=== PATIENT | male | born 1990 | race Caucasian/White ===

== ENCOUNTER 2020-07-17 18:53 | Inpatient (IN) | payer MEDICAID ==
[~2020-07-17] VITALS: Ht 182.9 cm; Wt 323.1 kg
--- NOTE | 2020-07-17 19:03 | NUR ---
Pt presents to ed states "webmd told me i am retaining fluids." States increased "size" to outer chests and "when i push down, the fat stays compressed." Pt able to ambulate w/ steady gait, but gets out of breath shortly after. 2+ pitting edema noted on upper and lower extremities and pt is morbidly obese. States has chronic sob, "because i just feel like i have too much on my chest." Monitoring applied. Pt RA sat 85% and put on 3.5 L nc and sat up to 91%. Pt tachycardic at time and bp elevated.
--- NOTE | 2020-07-17 19:43 | NUR ---
BARIATRIC BED REQUESTED FROM HOUSEKEEPING.
--- NOTE | 2020-07-17 20:13 | NUR ---
Pt moved to bariatric bed. Pt able to shuffle to edge of bed. Pt reporting bariatric bed much more comfortable.
[2020-07-17] MEDS ORDERED: FUROSEMIDE 40 MG/4 ML IV ONE (21:00)
[2020-07-17 21:56] LABS: MEAN CORPUSCULAR HEMOGLOBIN 24.1 pg (27.5-34.5); MEAN CORPUSCULAR HGB CONC 30.5 g/dL (33.2-36.2); PLATELET COUNT 252 x10^3/uL (130-400); RED BLOOD COUNT 5.37 x10^6/uL (4.38-5.82); RED CELL DISTRIBUTION WIDTH 23.6 % (9.4-14.8)
[2020-07-17 22:00] LABS: ALBUMIN 2.5 g/dL (3.4-5.0); ANION GAP 4 mmol/L (5-15); CALCIUM 7.7 mg/dL (8.5-10.1); CHLORIDE 104 mmol/L (98-107)
[2020-07-17 22:05] LABS: ALANINE AMINOTRANSFERASE 41 U/L (12-78); ALKALINE PHOSPHATASE 129 U/L (45-117); BILIRUBIN,TOTAL 1.7 mg/dL (0.2-1.0); CREATININE 1.32 mg/dL (0.7-1.3); TOTAL PROTEIN 6.9 g/dL (6.4-8.2); TROPONIN I < 0.015 ng/mL (0.000-0.045)
[2020-07-17 22:21] LABS: BASOPHILS # (AUTO) 0.03 x10^3/uL (0-0.1); BASOPHILS % (AUTO) 0 % (0-1); EOSINOPHILS # (AUTO) 0.18 x10^3/uL (0-0.4); EOSINOPHILS % (AUTO) 2 % (1-7); LYMPHOCYTES # (AUTO) 2.38 x10^3/uL (1-3.4); LYMPHOCYTES % (AUTO) 20 % (22-44); MD MORPH REVIEW ONLY; MONOCYTES # (AUTO) 0.64 x10^3/uL (0.2-0.8); MONOCYTES % (AUTO) 5 % (2-9); NEUTROPHILS # (AUTO) 8.63 x10^3/uL (1.8-6.8); NEUTROPHILS % (AUTO) 73 % (42-75)
[2020-07-17 22:22] LABS: <PLATELET ESTIMATE> ADEQUATE; <PLT MORPHOLOGY> NORMAL PLT MORPH; ANISOCYTOSIS 1+; HYPOCHROMIA 1+; MICROCYTOSIS 1+; POLYCHROMASIA 1+
[2020-07-17] MEDS ORDERED: FUROSEMIDE 40 MG/4 ML ONE (22:28)
--- NOTE | 2020-07-17 23:54 | NUR ---
Pt not ventilating as well on optiflow, pt has put out 2800mls of urine. Pt reports he is breathing fine but pts breathing rate is otherwise, pt had o2 increased and respiratory paged for bedside eval.
[2020-07-18] MEDS ORDERED: ACETAMINOPHEN 325 MG TABLET PO PRN
[2020-07-18] MEDS ORDERED: DOCUSATE 100 MG CAPSULE PO PRN
[2020-07-18] MEDS ORDERED: NYSTATIN TOPICAL POWDER 15GM TP SCH
[2020-07-18] MEDS ORDERED: hydrALAzine 20 MG/ML, 1ML IVPush PRN
[2020-07-18] MEDS ORDERED: MELATONIN 5 MG TABLET PO PRN
--- NOTE | 2020-07-18 00:02 | NUR ---
Report received from FERN Voss. This RN to assume care.
--- NOTE | 2020-07-18 00:06 | NUR ---
Report to Lulú SHIRLEY
--- NOTE | 2020-07-18 00:28 | NUR ---
Placed interDry Antimicrobial Silver cloth under right and left pectoral folds, as well as abdominal folds
--- NOTE | 2020-07-18 01:00 | NUR ---
Report given to FERN Yoon. Patient transferred to room 515.
[2020-07-18 01:11] VITALS: BP 136/81
[2020-07-18 02:39] VITALS: BP 135/80
[2020-07-18] MEDS: HEPARIN 5,000 UNITS/ML, 1ML SQ SCH ×3 (03:04→16:30)
[2020-07-18] MEDS: NYSTATIN TOPICAL POWDER 15GM TP SCH ×4 (07:09→20:38)
[2020-07-18 07:29] LABS: MEAN CORPUSCULAR HEMOGLOBIN 23.9 pg (27.5-34.5); MEAN PLATELET VOLUME 7.7 fL (7.4-10.4); PLATELET COUNT 273 x10^3/uL (130-400); RED CELL DISTRIBUTION WIDTH 23.6 % (9.4-14.8)
[2020-07-18 07:30] LABS: ANION GAP 5 mmol/L (5-15); CALCIUM 7.9 mg/dL (8.5-10.1); CHLORIDE 104 mmol/L (98-107); CREATININE 1.21 mg/dL (0.7-1.3)
[2020-07-18 07:35] LABS: CHOL/HDL RATIO 4.8; LDL/HDL RATIO 2.9 (0.5-3.0)
[2020-07-18 07:45] LABS: MEAN CORPUSCULAR HGB CONC 29.9 g/dL (33.2-36.2)
[2020-07-18 07:46] LABS: BASOPHILS # (AUTO) 0.02 x10^3/uL (0-0.1); BASOPHILS % (AUTO) 0 % (0-1); EOSINOPHILS % (AUTO) 1 % (1-7); LYMPHOCYTES # (AUTO) 2.15 x10^3/uL (1-3.4); LYMPHOCYTES % (AUTO) 15 % (22-44); MD SCAN; MONOCYTES # (AUTO) 0.61 x10^3/uL (0.2-0.8); MONOCYTES % (AUTO) 4 % (2-9); NEUTROPHILS # (AUTO) 11.59 x10^3/uL (1.8-6.8); NEUTROPHILS % (AUTO) 80 % (42-75)
[2020-07-18] MEDS: FUROSEMIDE 40 MG/4 ML IV SCH ×2 (08:17→16:30)
[2020-07-18] MEDS: CIPROFLOXACIN OPHTH SOLN 0.3%, 5ML EACHEYE SCH (20:38)
[2020-07-19] MEDS: HEPARIN 5,000 UNITS/ML, 1ML SQ SCH ×3 (00:21→17:25)
[2020-07-19] MEDS: CIPROFLOXACIN OPHTH SOLN 0.3%, 5ML EACHEYE SCH ×4 (02:24→20:22)
[2020-07-19] MEDS: NYSTATIN TOPICAL POWDER 15GM TP SCH ×3 (05:44→20:22)
[2020-07-19 06:28] LABS: MEAN CORPUSCULAR HEMOGLOBIN 24.3 pg (27.5-34.5); MEAN CORPUSCULAR HGB CONC 30.5 g/dL (33.2-36.2); MEAN PLATELET VOLUME 8.1 fL (7.4-10.4); PLATELET COUNT 251 x10^3/uL (130-400); RED BLOOD COUNT 5.28 x10^6/uL (4.38-5.82); RED CELL DISTRIBUTION WIDTH 23.5 % (9.4-14.8)
[2020-07-19 06:31] LABS: % IRON SATURATION 11 % (20-55); ALANINE AMINOTRANSFERASE 33 U/L (12-78); ALBUMIN 2.5 g/dL (3.4-5.0); ANION GAP 5 mmol/L (5-15); CALCIUM 8.4 mg/dL (8.5-10.1); CHLORIDE 105 mmol/L (98-107); CREATININE 1.15 mg/dL (0.7-1.3); IRON LEVEL 46 mcg/dL (65-175); TOTAL IRON BINDING CAPACITY 427 mcg/dL (250-450)
[2020-07-19 06:35] LABS: ALKALINE PHOSPHATASE 122 U/L (45-117); BILIRUBIN,TOTAL 2.2 mg/dL (0.2-1.0); TOTAL PROTEIN 7.2 g/dL (6.4-8.2)
[2020-07-19 07:04] LABS: BASOPHILS # (AUTO) 0.03 x10^3/uL (0-0.1); BASOPHILS % (AUTO) 0 % (0-1); EOSINOPHILS # (AUTO) 0.16 x10^3/uL (0-0.4); EOSINOPHILS % (AUTO) 1 % (1-7); LYMPHOCYTES # (AUTO) 2.54 x10^3/uL (1-3.4); LYMPHOCYTES % (AUTO) 21 % (22-44); MD SCAN; MONOCYTES # (AUTO) 0.69 x10^3/uL (0.2-0.8); MONOCYTES % (AUTO) 6 % (2-9); NEUTROPHILS # (AUTO) 8.75 x10^3/uL (1.8-6.8); NEUTROPHILS % (AUTO) 72 % (42-75)
[2020-07-19] MEDS: FUROSEMIDE 40 MG/4 ML IV SCH ×2 (09:33→17:25)
[2020-07-19] MEDS: IRON SUCROSE COMPLEX 100MG/5ML IV SCH (11:50)
[2020-07-20] MEDS: HEPARIN 5,000 UNITS/ML, 1ML SQ SCH ×3 (00:46→17:05)
[2020-07-20 04:37] LABS: ANION GAP 4 mmol/L (5-15); CALCIUM 8.2 mg/dL (8.5-10.1); CHLORIDE 104 mmol/L (98-107)
[2020-07-20] MEDS: NYSTATIN TOPICAL POWDER 15GM TP SCH ×4 (05:36→20:56)
[2020-07-20] MEDS: FUROSEMIDE 40 MG/4 ML IV SCH ×2 (07:54→17:05)
[2020-07-20] MEDS ORDERED: PROPOFOL 10 MG/ML, 100ML IV ONE (08:00)
[2020-07-20] MEDS: IRON SUCROSE COMPLEX 100MG/5ML IV SCH (09:08)
[2020-07-21] MEDS: HEPARIN 5,000 UNITS/ML, 1ML SQ SCH ×3 (00:19→16:38)
[2020-07-21 04:00] VITALS: BP 136/82
[2020-07-21 04:42] LABS: ANION GAP 2 mmol/L (5-15); CHLORIDE 103 mmol/L (98-107)
[2020-07-21 04:44] LABS: CREATININE 0.91 mg/dL (0.7-1.3)
[2020-07-21 04:45] LABS: MEAN CORPUSCULAR HEMOGLOBIN 24.3 pg (27.5-34.5); MEAN CORPUSCULAR HGB CONC 30.1 g/dL (33.2-36.2); MEAN PLATELET VOLUME 7.3 fL (7.4-10.4); PLATELET COUNT 248 x10^3/uL (130-400); RED CELL DISTRIBUTION WIDTH 23.4 % (9.4-14.8)
[2020-07-21 05:47] LABS: BASOPHILS # (AUTO) 0.02 x10^3/uL (0-0.1); BASOPHILS % (AUTO) 0 % (0-1); EOSINOPHILS # (AUTO) 0.17 x10^3/uL (0-0.4); EOSINOPHILS % (AUTO) 2 % (1-7); LYMPHOCYTES # (AUTO) 1.97 x10^3/uL (1-3.4); LYMPHOCYTES % (AUTO) 21 % (22-44); MD SCAN; MONOCYTES # (AUTO) 0.56 x10^3/uL (0.2-0.8); MONOCYTES % (AUTO) 6 % (2-9); NEUTROPHILS # (AUTO) 6.75 x10^3/uL (1.8-6.8); NEUTROPHILS % (AUTO) 71 % (42-75)
[2020-07-21] MEDS: NYSTATIN TOPICAL POWDER 15GM TP SCH ×4 (06:17→20:53)
[2020-07-21] MEDS: IRON SUCROSE COMPLEX 100MG/5ML IV SCH (08:46)
[2020-07-21] MEDS: FUROSEMIDE 40 MG/4 ML IV SCH ×2 (08:46→16:38)
[2020-07-21] MEDS: CIPROFLOXACIN OPHTH SOLN 0.3%, 5ML EACHEYE SCH ×2 (08:47→18:00)
[2020-07-22] MEDS: CIPROFLOXACIN OPHTH SOLN 0.3%, 5ML EACHEYE SCH ×4 (00:52→16:41)
[2020-07-22] MEDS: HEPARIN 5,000 UNITS/ML, 1ML SQ SCH ×3 (00:52→16:42)
[2020-07-22 04:00] VITALS: BP 129/81
[2020-07-22 05:26] LABS: CALCIUM 8.4 mg/dL (8.5-10.1); CREATININE 0.85 mg/dL (0.7-1.3)
[2020-07-22 05:35] LABS: ANION GAP 1 mmol/L (5-15); CHLORIDE 102 mmol/L (98-107)
[2020-07-22] MEDS: NYSTATIN TOPICAL POWDER 15GM TP SCH ×4 (06:02→20:20)
[2020-07-22] MEDS: IRON SUCROSE COMPLEX 100MG/5ML IV SCH (08:21)
[2020-07-22] MEDS: FUROSEMIDE 40 MG/4 ML IV SCH ×2 (08:21→16:41)
[2020-07-23] MEDS: CIPROFLOXACIN OPHTH SOLN 0.3%, 5ML EACHEYE SCH ×4 (00:05→17:46)
[2020-07-23] MEDS: HEPARIN 5,000 UNITS/ML, 1ML SQ SCH ×3 (01:12→17:48)
[2020-07-23 04:00] VITALS: BP 146/79
[2020-07-23 04:38] LABS: ANION GAP 3 mmol/L (5-15); CALCIUM 8.5 mg/dL (8.5-10.1); CHLORIDE 102 mmol/L (98-107)
[2020-07-23 04:42] LABS: CREATININE 0.73 mg/dL (0.7-1.3)
[2020-07-23] MEDS: NYSTATIN TOPICAL POWDER 15GM TP SCH ×4 (06:01→21:34)
[2020-07-23] MEDS: FUROSEMIDE 40 MG/4 ML IV SCH ×2 (08:38→17:47)
[2020-07-23] MEDS: IRON SUCROSE COMPLEX 100MG/5ML IV SCH (08:38)
[2020-07-24] MEDS: CIPROFLOXACIN OPHTH SOLN 0.3%, 5ML EACHEYE SCH ×5 (00:23→23:24)
[2020-07-24] MEDS: FUROSEMIDE 40 MG/4 ML IV SCH ×3 (01:28→16:48)
[2020-07-24] MEDS: HEPARIN 5,000 UNITS/ML, 1ML SQ SCH ×3 (01:28→16:48)
[2020-07-24 04:30] VITALS: BP 139/64
[2020-07-24 04:41] LABS: MEAN PLATELET VOLUME 7.5 fL (7.4-10.4); PLATELET COUNT 269 x10^3/uL (130-400); RED BLOOD COUNT 4.88 x10^6/uL (4.38-5.82); RED CELL DISTRIBUTION WIDTH 24.1 % (9.4-14.8)
[2020-07-24 04:47] LABS: ANION GAP 3 mmol/L (5-15); CALCIUM 8.5 mg/dL (8.5-10.1); CHLORIDE 100 mmol/L (98-107); CREATININE 0.72 mg/dL (0.7-1.3)
[2020-07-24 05:05] LABS: BASOPHILS # (AUTO) 0.03 x10^3/uL (0-0.1); BASOPHILS % (AUTO) 0 % (0-1); EOSINOPHILS % (AUTO) 4 % (1-7); LYMPHOCYTES # (AUTO) 1.75 x10^3/uL (1-3.4); LYMPHOCYTES % (AUTO) 23 % (22-44); MD SCAN; MONOCYTES # (AUTO) 0.44 x10^3/uL (0.2-0.8); MONOCYTES % (AUTO) 6 % (2-9); NEUTROPHILS # (AUTO) 4.97 x10^3/uL (1.8-6.8); NEUTROPHILS % (AUTO) 66 % (42-75)
[2020-07-24] MEDS: NYSTATIN TOPICAL POWDER 15GM TP SCH ×4 (05:21→20:18)
[2020-07-24] MEDS ORDERED: POTASSIUM CHLORIDE 20 MEQ TAB.ER.PRT PO ONE (06:30)
[2020-07-24] MEDS: IRON SUCROSE COMPLEX 100MG/5ML IV SCH (09:25)
[2020-07-25] MEDS: HEPARIN 5,000 UNITS/ML, 1ML SQ SCH ×3 (01:49→17:29)
[2020-07-25] MEDS: FUROSEMIDE 40 MG/4 ML IV SCH ×3 (01:49→17:29)
[2020-07-25 04:00] VITALS: BP 138/87
[2020-07-25] MEDS: CIPROFLOXACIN OPHTH SOLN 0.3%, 5ML EACHEYE SCH ×3 (06:04→17:30)
[2020-07-25] MEDS: NYSTATIN TOPICAL POWDER 15GM TP SCH ×4 (06:04→20:28)
[2020-07-26] MEDS: CIPROFLOXACIN OPHTH SOLN 0.3%, 5ML EACHEYE SCH ×2 (00:16→05:57)
[2020-07-26] MEDS: FUROSEMIDE 40 MG/4 ML IV SCH (01:46)
[2020-07-26] MEDS: HEPARIN 5,000 UNITS/ML, 1ML SQ SCH ×3 (01:46→18:00)
[2020-07-26 04:00] VITALS: BP 156/78
[2020-07-26] MEDS: NYSTATIN TOPICAL POWDER 15GM TP SCH ×4 (05:57→20:24)
[2020-07-26 08:50] LABS: ANION GAP 3 mmol/L (5-15); CALCIUM 8.6 mg/dL (8.5-10.1); CHLORIDE 100 mmol/L (98-107)
[2020-07-26 08:51] LABS: CREATININE 0.71 mg/dL (0.7-1.3)
[2020-07-26] MEDS: FUROSEMIDE 40 MG TABLET PO SCH ×2 (09:04→20:49)
[2020-07-26 09:27] LABS: BASOPHILS # (AUTO) 0.02 x10^3/uL (0-0.1); BASOPHILS % (AUTO) 0 % (0-1); EOSINOPHILS # (AUTO) 0.25 x10^3/uL (0-0.4); EOSINOPHILS % (AUTO) 3 % (1-7); LYMPHOCYTES # (AUTO) 1.69 x10^3/uL (1-3.4); LYMPHOCYTES % (AUTO) 23 % (22-44); MD SCAN; MEAN CORPUSCULAR HEMOGLOBIN 24.5 pg (27.5-34.5); MEAN CORPUSCULAR HGB CONC 30.6 g/dL (33.2-36.2); MEAN PLATELET VOLUME 7.6 fL (7.4-10.4); MONOCYTES # (AUTO) 0.46 x10^3/uL (0.2-0.8); MONOCYTES % (AUTO) 6 % (2-9); NEUTROPHILS # (AUTO) 4.99 x10^3/uL (1.8-6.8); NEUTROPHILS % (AUTO) 67 % (42-75); PLATELET COUNT 302 x10^3/uL (130-400); RED BLOOD COUNT 4.68 x10^6/uL (4.38-5.82); RED CELL DISTRIBUTION WIDTH 24.7 % (9.4-14.8)
[2020-07-26 11:51] VITALS: BP 99/54
[2020-07-26 12:33] VITALS: BP 122/75
[2020-07-26 20:26] VITALS: BP 107/57
[2020-07-27] MEDS: HEPARIN 5,000 UNITS/ML, 1ML SQ SCH ×3 (01:07→18:14)
[2020-07-27 01:53] VITALS: BP 117/66
[2020-07-27 05:01] VITALS: BP 136/66
[2020-07-27] MEDS: NYSTATIN TOPICAL POWDER 15GM TP SCH ×4 (06:46→20:51)
[2020-07-27 07:59] VITALS: BP 131/60
[2020-07-27] MEDS: FUROSEMIDE 40 MG TABLET PO SCH ×2 (08:09→20:52)
[2020-07-27 13:09] VITALS: BP 124/71
[2020-07-27 21:41] VITALS: BP 140/90
[2020-07-28 00:18] VITALS: BP 137/80
[2020-07-28] MEDS: HEPARIN 5,000 UNITS/ML, 1ML SQ SCH ×3 (01:51→17:02)
[2020-07-28] MEDS: NYSTATIN TOPICAL POWDER 15GM TP SCH ×4 (06:00→21:00)
[2020-07-28 08:00] VITALS: BP 113/68
[2020-07-28] MEDS: FUROSEMIDE 40 MG TABLET PO SCH ×2 (08:39→20:20)
[2020-07-28] MEDS ORDERED: FUROSEMIDE 40 MG TABLET PO ONE (13:00)
[2020-07-28 14:38] VITALS: BP 128/76
[2020-07-28 20:11] VITALS: BP 121/74
[2020-07-29] MEDS: HEPARIN 5,000 UNITS/ML, 1ML SQ SCH ×3 (01:19→18:34)
[2020-07-29 02:46] VITALS: BP 123/87
[2020-07-29 05:35] LABS: ANION GAP 7 mmol/L (5-15); CALCIUM 8.8 mg/dL (8.5-10.1); CHLORIDE 104 mmol/L (98-107)
[2020-07-29 05:38] LABS: CREATININE 0.81 mg/dL (0.7-1.3)
[2020-07-29] MEDS: NYSTATIN TOPICAL POWDER 15GM TP SCH ×4 (05:58→20:56)
[2020-07-29 07:56] VITALS: BP 124/66
[2020-07-29] MEDS: FUROSEMIDE 40 MG TABLET PO SCH ×2 (09:31→20:55)
[2020-07-29 13:22] VITALS: BP 118/62
[2020-07-29 15:18] VITALS: BP 138/89
--- NOTE | 2020-07-29 15:29 | NUR ---
TABITHA KLEIN I - Fall Risk Medications NOT present and receiving anticoagulants. Signed: 07/29/20 at 1530 by Steve NORMAN
[2020-07-29 18:57] VITALS: BP 137/85
[2020-07-29] MEDS: ARTIFICIAL TEARS 15 DROP/ML BOTTLE EACHEYE PRN (20:56)
[2020-07-30 00:43] VITALS: BP 158/77
[2020-07-30] MEDS: HEPARIN 5,000 UNITS/ML, 1ML SQ SCH ×3 (01:00→17:20)
[2020-07-30] MEDS: NYSTATIN TOPICAL POWDER 15GM TP SCH ×4 (06:13→21:01)
[2020-07-30 07:17] VITALS: BP 138/81
[2020-07-30] MEDS: FUROSEMIDE 40 MG TABLET PO SCH ×2 (08:52→21:00)
[2020-07-30] MEDS: ARTIFICIAL TEARS 15 DROP/ML BOTTLE EACHEYE PRN (12:41)
[2020-07-30 18:58] VITALS: BP 152/79
[2020-07-31] MEDS: HEPARIN 5,000 UNITS/ML, 1ML SQ SCH ×3 (00:30→16:59)
[2020-07-31 00:41] VITALS: BP 126/80
[2020-07-31 05:15] LABS: ANION GAP 7 mmol/L (5-15); CALCIUM 8.4 mg/dL (8.5-10.1); CHLORIDE 103 mmol/L (98-107); CREATININE 0.78 mg/dL (0.7-1.3)
[2020-07-31 05:43] LABS: MEAN CORPUSCULAR HEMOGLOBIN 24.7 pg (27.5-34.5); MEAN CORPUSCULAR HGB CONC 30.8 g/dL (33.2-36.2); MEAN PLATELET VOLUME 8.5 fL (7.4-10.4); PLATELET COUNT 313 x10^3/uL (130-400); RED BLOOD COUNT 4.65 x10^6/uL (4.38-5.82); RED CELL DISTRIBUTION WIDTH 26.5 % (9.4-14.8)
[2020-07-31 06:24] LABS: BASOPHILS # (AUTO) 0.03 x10^3/uL (0-0.1); BASOPHILS % (AUTO) 0 % (0-1); EOSINOPHILS # (AUTO) 0.24 x10^3/uL (0-0.4); EOSINOPHILS % (AUTO) 3 % (1-7); LYMPHOCYTES # (AUTO) 2.03 x10^3/uL (1-3.4); LYMPHOCYTES % (AUTO) 27 % (22-44); MD SCAN; MONOCYTES # (AUTO) 0.75 x10^3/uL (0.2-0.8); MONOCYTES % (AUTO) 10 % (2-9); NEUTROPHILS # (AUTO) 4.61 x10^3/uL (1.8-6.8); NEUTROPHILS % (AUTO) 60 % (42-75)
[2020-07-31] MEDS: NYSTATIN TOPICAL POWDER 15GM TP SCH ×4 (06:30→23:25)
[2020-07-31 08:22] VITALS: BP 136/84
[2020-07-31] MEDS: FUROSEMIDE 40 MG TABLET PO SCH ×2 (09:19→23:24)
[2020-07-31 13:52] VITALS: BP 143/80
[2020-08-01] MEDS: HEPARIN 5,000 UNITS/ML, 1ML SQ SCH ×3 (00:31→16:19)
[2020-08-01 00:33] VITALS: BP 143/88
[2020-08-01] MEDS: NYSTATIN TOPICAL POWDER 15GM TP SCH ×4 (06:29→21:04)
[2020-08-01 09:08] VITALS: BP 149/89
[2020-08-01] MEDS: FUROSEMIDE 40 MG TABLET PO SCH ×2 (09:39→21:04)
[2020-08-01 12:26] VITALS: BP 134/77
[2020-08-01] MEDS ORDERED: PEG15DRO4 EACHEYE (15:07)
[2020-08-01] MEDS ORDERED: FURO40TA6 PO (15:07)
[2020-08-01] MEDS ORDERED: DOCU100C33 PO (15:07)
[2020-08-01] MEDS ORDERED: NYST15PO2 TP (15:07)
[2020-08-01 18:39] VITALS: BP 154/80
[2020-08-02 00:11] VITALS: BP 145/84
[2020-08-02] MEDS: HEPARIN 5,000 UNITS/ML, 1ML SQ SCH ×3 (01:29→16:59)
[2020-08-02] MEDS: NYSTATIN TOPICAL POWDER 15GM TP SCH ×4 (06:04→21:23)
[2020-08-02 06:21] VITALS: BP 146/72
[2020-08-02] MEDS: FUROSEMIDE 40 MG TABLET PO SCH ×2 (09:02→21:22)
[2020-08-02 12:16] VITALS: BP 128/67
[2020-08-02 19:01] VITALS: BP 131/75
[2020-08-03 00:47] VITALS: BP 149/75
[2020-08-03] MEDS: HEPARIN 5,000 UNITS/ML, 1ML SQ SCH ×3 (00:51→17:00)
[2020-08-03] MEDS: NYSTATIN TOPICAL POWDER 15GM TP SCH ×4 (05:50→21:39)
[2020-08-03 07:37] VITALS: BP 149/23
[2020-08-03] MEDS: FUROSEMIDE 40 MG TABLET PO SCH ×2 (09:26→21:38)
[2020-08-03 12:20] VITALS: BP 140/76
[2020-08-03 20:28] VITALS: BP 145/79
[2020-08-04 01:27] VITALS: BP 157/85
[2020-08-04] MEDS: HEPARIN 5,000 UNITS/ML, 1ML SQ SCH ×3 (01:30→18:00)
[2020-08-04] MEDS: NYSTATIN TOPICAL POWDER 15GM TP SCH ×3 (06:26→16:34)
[2020-08-04 07:20] VITALS: BP 148/76
[2020-08-04] MEDS: FUROSEMIDE 40 MG TABLET PO SCH (09:55)
[2020-08-04 13:11] VITALS: BP 132/73
== END 2020-08-04 19:05 | disposition home or self-care (01) | DRG 133 ==
LOC: ED 22:48 → EDIP 23:08 → 5SO 07-18 01:01 → CCU 07-18 03:28 → 3N 07-26 11:33
PROVIDERS: ADMIT Student in an Organized Health Care Education/Training Program; ATTEND Internal Medicine
PROC: 5A09357 Assistance with Respiratory Ventilation, Less than 24 Consecutive Hours, Continuous Positive Airway Pressure (ICD-10-PCS; principal; 2020-07-18)
PROC: 5A09357 Assistance with Respiratory Ventilation, Less than 24 Consecutive Hours, Continuous Positive Airway Pressure (ICD-10-PCS; 2020-07-19)
PROC: 5A09357 Assistance with Respiratory Ventilation, Less than 24 Consecutive Hours, Continuous Positive Airway Pressure (ICD-10-PCS; 2020-07-20)
PROC: 5A09357 Assistance with Respiratory Ventilation, Less than 24 Consecutive Hours, Continuous Positive Airway Pressure (ICD-10-PCS; 2020-07-21)
PROC: 5A09357 Assistance with Respiratory Ventilation, Less than 24 Consecutive Hours, Continuous Positive Airway Pressure (ICD-10-PCS; 2020-07-22)
PROC: 5A09357 Assistance with Respiratory Ventilation, Less than 24 Consecutive Hours, Continuous Positive Airway Pressure (ICD-10-PCS; 2020-07-23)
PROC: 5A09357 Assistance with Respiratory Ventilation, Less than 24 Consecutive Hours, Continuous Positive Airway Pressure (ICD-10-PCS; 2020-07-24)
PROC: 5A09357 Assistance with Respiratory Ventilation, Less than 24 Consecutive Hours, Continuous Positive Airway Pressure (ICD-10-PCS; 2020-07-25)
PROC: 5A09357 Assistance with Respiratory Ventilation, Less than 24 Consecutive Hours, Continuous Positive Airway Pressure (ICD-10-PCS; 2020-07-26)
PROC: 5A09357 Assistance with Respiratory Ventilation, Less than 24 Consecutive Hours, Continuous Positive Airway Pressure (ICD-10-PCS; 2020-07-27)
PROC: 5A09357 Assistance with Respiratory Ventilation, Less than 24 Consecutive Hours, Continuous Positive Airway Pressure (ICD-10-PCS; 2020-07-28)
PROC: 5A09357 Assistance with Respiratory Ventilation, Less than 24 Consecutive Hours, Continuous Positive Airway Pressure (ICD-10-PCS; 2020-07-29)
PROC: 5A09357 Assistance with Respiratory Ventilation, Less than 24 Consecutive Hours, Continuous Positive Airway Pressure (ICD-10-PCS; 2020-07-30)
PROC: 5A09357 Assistance with Respiratory Ventilation, Less than 24 Consecutive Hours, Continuous Positive Airway Pressure (ICD-10-PCS; 2020-07-31)
PROC: 5A09357 Assistance with Respiratory Ventilation, Less than 24 Consecutive Hours, Continuous Positive Airway Pressure (ICD-10-PCS; 2020-08-01)
PROC: 5A09357 Assistance with Respiratory Ventilation, Less than 24 Consecutive Hours, Continuous Positive Airway Pressure (ICD-10-PCS; 2020-08-02)
PROC: 5A09357 Assistance with Respiratory Ventilation, Less than 24 Consecutive Hours, Continuous Positive Airway Pressure (ICD-10-PCS; 2020-08-03)
PROC: 5A09357 Assistance with Respiratory Ventilation, Less than 24 Consecutive Hours, Continuous Positive Airway Pressure (ICD-10-PCS; 2020-08-04)
DX: J96.21 Acute and chronic respiratory failure with hypoxia (principal); D50.9 Iron deficiency anemia, unspecified; E16.2 Hypoglycemia, unspecified; E66.2 Morbid (severe) obesity with alveolar hypoventilation; I50.33 Acute on chronic diastolic (congestive) heart failure; J96.22 Acute and chronic respiratory failure with hypercapnia; Z68.45 Body mass index [BMI] 70 or greater, adult; E87.2 Acidosis; F15.10 Other stimulant abuse, uncomplicated; H10.9 Unspecified conjunctivitis; I07.1 Rheumatic tricuspid insufficiency; L03.818 Cellulitis of other sites; N17.0 Acute kidney failure with tubular necrosis; R53.2 Functional quadriplegia; R00.0 Tachycardia, unspecified; Z74.01 Bed confinement status; Z83.3 Family history of diabetes mellitus
CPT/HCPCS: 36415; 36600; 71045; 80048; 80053; 80061; 82728; 82803; 83036; 83540; 83550; 83735; 83880; 84443; 84484; 85025; 87081; 93005; 94660; 94762; 96374; 99291; G0378; J1644; J1756; J1940; J2704; Q9957; C8924

== ENCOUNTER 2021-01-10 15:50 | Inpatient (IN) | payer MEDICAID ==
[~2021-01-10] VITALS: Ht 177.8 cm; Wt 261.8 kg
[~2021-01-10 15:50] MED LIST: DOCU100C33 PO; FURO40TA6 PO; NYST15PO2 TP; PEG15DRO4 EACHEYE
[2021-01-10] MEDS ORDERED: ADENOSINE 6 MG/2 ML ONE ×3 (16:00→16:42)
[2021-01-10] MEDS ORDERED: SODIUM CHLORIDE FLUSH 10ML SYR IVF ONE (16:30)
--- NOTE | 2021-01-10 16:47 | NUR ---
6mg of adenosine given at 1645 with MD Lin at bedside.
[2021-01-10] MEDS ORDERED: METOPROLOL 1 MG/ML, 5ML ONE (16:48)
[2021-01-10 16:54] LABS: BASOPHILS % (AUTO) 0 % (0-1); EOSINOPHILS % (AUTO) 1 % (1-7); LYMPHOCYTES % (AUTO) 24 % (22-44); MEAN CORPUSCULAR HEMOGLOBIN 33.6 pg (27.5-34.5); MEAN CORPUSCULAR HGB CONC 34.6 g/dL (33.2-36.2); MEAN PLATELET VOLUME 8.7 fL (7.4-10.4); MONOCYTES % (AUTO) 5 % (2-9); NEUTROPHILS % (AUTO) 70 % (42-75); PLATELET COUNT 265 x10^3/uL (130-400); RED BLOOD COUNT 4.06 x10^6/uL (4.38-5.82); RED CELL DISTRIBUTION WIDTH 14.2 % (9.4-14.8)
[2021-01-10 16:56] LABS: MD NO
[2021-01-10] MEDS ORDERED: METOPROLOL 1 MG/ML, 5ML IVPush ONE (17:00)
[2021-01-10] MEDS ORDERED: ADENOSINE 6 MG/2 ML IVPush ONE (17:00)
[2021-01-10 17:01] LABS: ALBUMIN 3.2 g/dL (3.4-5.0); ANION GAP 9 mmol/L (5-15); CALCIUM 8.6 mg/dL (8.5-10.1); CHLORIDE 112 mmol/L (98-107)
[2021-01-10 17:13] LABS: ALANINE AMINOTRANSFERASE 57 U/L (12-78); ALKALINE PHOSPHATASE 153 U/L (45-117); BILIRUBIN,TOTAL 0.6 mg/dL (0.2-1.0); CREATININE 1.02 mg/dL (0.7-1.3); TROPONIN I 0.025 ng/mL (0.000-0.045)
--- NOTE | 2021-01-10 17:36 | NUR ---
Late entry summary note: Pt coming from home where he lives with his parents. Pt states he was contimplating physician assisted suicide in July when he was at his heaviest weight of 954lbs. Pt decided to stop drinking, smoking and doing recreational drugs and instead see a physician about weight loss. Pt states he was on Lasix and lost 200lbs in 3 weeks. Hx of CHF, presents today with new onset a-fib per EMS. Upon connecting pt to monitors, pt in SVT at HR apporx 240. Pt states he felt dizzy after walking from gurney to bed and could feel his heart racing. MD Lin made aware immediately and she came to bedside. Valsalva manuevers attempted. Pt sopontaneously converted on his own. Pt connected to cardiac pads. Pt then went back in to SVT at HR 250. Medications administered after Valsalva maneuvers failed. Pt has no complaints at this time.
[2021-01-10] MEDS ORDERED: DILTIAZEM 5 MG/ML, 5ML ONE (18:28)
--- NOTE | 2021-01-10 18:29 | NUR ---
Pt stood to pee. Pt converted into SVT at HR 240s. MD Lin at bedside. Pt converted back. MD Lin consulting with cardiology now.
[2021-01-10] MEDS ORDERED: PROPOFOL 10 MG/ML, 20ML IV ONE (18:30)
[2021-01-10] MEDS ORDERED: DILTIAZEM 5 MG/ML, 5ML IV ONE (18:30)
[2021-01-10] MEDS ORDERED: ENOXAPARIN 40 MG/0.4 ML SQ SCH (19:00)
[2021-01-10] MEDS ORDERED: ONDANSETRON 2MG/ML, 2ML IVPush PRN (19:00)
[2021-01-10] MEDS ORDERED: ACETAMINOPHEN 325 MG TABLET PO PRN (19:00)
[2021-01-10] MEDS ORDERED: HYDROcodone/APAP 5/325 TABLET PO PRN (19:00)
[2021-01-10] MEDS ORDERED: AMIODARONE 150 MG in DEXTROSE 5% 97 ML IV ONE (19:00)
[2021-01-10] MEDS ORDERED: LABETALOL 5MG/ML, 20ML IVPush PRN (19:00)
[2021-01-10] MEDS ORDERED: DILTIAZEM 30 MG TABLET PO ONE (19:00)
[2021-01-10] MEDS: FILTER 0.22 MICRON IV PRN ×2 (19:19→19:35)
--- NOTE | 2021-01-10 19:24 | NUR ---
i have not received report on this patient but patient is in rapid afib and has orders for start of amiodarone bolus and gtt. i flushed LAC #18g with +blood return and easy flush. and started bolus. i educated patient on amiodarone and reason for administration. in NAD. denies CP. no SOB. watching tv. RN remains at bedside to start amio gtt promptly
[2021-01-10] MEDS ORDERED: ENOXAPARIN 40 MG/0.4 ML ONE (19:27)
[2021-01-10] MEDS ORDERED: ARTIFICIAL TEARS 15 DROP/ML BOTTLE EACHEYE PRN (19:30)
[2021-01-10] MEDS ORDERED: DOCUSATE 100 MG CAPSULE PO PRN (19:30)
[2021-01-10] MEDS: AMIODARONE 450 MG in DEXTROSE 5% 241 ML IV PRN (19:35)
--- NOTE | 2021-01-10 19:35 | NUR ---
CONTINUOUS AMIO DRIP STARTED ORDERED AT 1MG/MIN WITH MICRO FILTER. IV HAS + BLOOD RETURN AND FLUSHES EASILY. WILL CONTINUE TO MONITOR.
--- NOTE | 2021-01-10 19:45 | NUR ---
REPORT RECEIVED BY KELSIE SHIRLEY TO THIS RN. I HAVE ASSUMED CARE OF PATIENT AT THIS TIME
--- NOTE | 2021-01-10 20:11 | NUR ---
ATTEMPTED REPORT AT THIS TIME TO TELE UNIT. WAITING FOR RN TO CALL BACK FOR REPORT
--- NOTE | 2021-01-10 20:15 | NUR ---
PATIENT RESTING IN BED IN NAD. CALL WEBBER IN REACH. WILL CONTINUE TO MONITOR.
--- NOTE | 2021-01-10 20:27 | NUR ---
REPORT GIVEN TO CODEY RN. OPPORTUNITY GIVEN TO ASK FURTHER QUESTIONS. NO FURTHER QUESTIONS
[2021-01-10] MEDS: NYSTATIN TOPICAL POWDER 15GM TP SCH ×2 (21:00→21:54)
[2021-01-10] MEDS: ENOXAPARIN 120MG/0.8ML SQ SCH (21:46)
[2021-01-10] MEDS: FUROSEMIDE 40 MG TABLET PO SCH (21:47)
[2021-01-10 23:22] VITALS: BP 124/78
[2021-01-11 02:45] VITALS: BP 113/77
[2021-01-11 05:59] LABS: BASOPHILS % (AUTO) 0 % (0-1); EOSINOPHILS % (AUTO) 2 % (1-7); LYMPHOCYTES % (AUTO) 38 % (22-44); MEAN CORPUSCULAR HEMOGLOBIN 33.2 pg (27.5-34.5); MEAN CORPUSCULAR HGB CONC 34.3 g/dL (33.2-36.2); MEAN PLATELET VOLUME 8.5 fL (7.4-10.4); MONOCYTES % (AUTO) 6 % (2-9); NEUTROPHILS % (AUTO) 54 % (42-75); PLATELET COUNT 263 x10^3/uL (130-400); RED BLOOD COUNT 3.97 x10^6/uL (4.38-5.82); RED CELL DISTRIBUTION WIDTH 14.3 % (9.4-14.8)
[2021-01-11 06:03] LABS: ALANINE AMINOTRANSFERASE 55 U/L (12-78); ANION GAP 6 mmol/L (5-15); CALCIUM 8.2 mg/dL (8.5-10.1); CHLORIDE 111 mmol/L (98-107)
[2021-01-11 06:06] LABS: ALKALINE PHOSPHATASE 131 U/L (45-117); BILIRUBIN,TOTAL 0.9 mg/dL (0.2-1.0); CREATININE 0.82 mg/dL (0.7-1.3); TOTAL PROTEIN 7.1 g/dL (6.4-8.2)
[2021-01-11 06:28] LABS: MD NO
[2021-01-11] MEDS ORDERED: POTASSIUM CHLORIDE 20 MEQ TAB.ER.PRT PO ONE (07:00)
[2021-01-11 07:54] VITALS: BP 117/72
[2021-01-11] MEDS: ENOXAPARIN 120MG/0.8ML SQ SCH ×2 (08:30→20:30)
[2021-01-11] MEDS: FUROSEMIDE 40 MG TABLET PO SCH ×2 (09:49→20:32)
[2021-01-11] MEDS: AMIODARONE 450 MG in DEXTROSE 5% 241 ML IV PRN ×2 (09:59→20:30)
[2021-01-11] MEDS ORDERED: [UNRECOGNIZED DRUG - OTHER] MC SCH (10:00)
[2021-01-11] MEDS ORDERED: AMIODARONE 150 MG in DEXTROSE 5% 100 ML IV ONE ×5 (10:00→13:30)
[2021-01-11] MEDS: NYSTATIN TOPICAL POWDER 15GM TP SCH ×3 (11:15→20:30)
[2021-01-11] MEDS ORDERED: DIGOXIN 0.25 MG/ML, 2ML IVPush ONE ×2 (12:00→14:30)
[2021-01-11] MEDS ORDERED: METOPROLOL TARTRATE 25 MG TAB PO ONE (12:00)
[2021-01-11 13:24] VITALS: BP 123/59
[2021-01-11 20:20] VITALS: BP 101/69
[2021-01-11] MEDS: ENOXAPARIN 100 MG/ML SQ SCH (20:31)
[2021-01-12 02:32] VITALS: BP 109/60
[2021-01-12 05:31] LABS: BASOPHILS % (AUTO) 0 % (0-1); EOSINOPHILS % (AUTO) 2 % (1-7); LYMPHOCYTES % (AUTO) 38 % (22-44); MEAN CORPUSCULAR HEMOGLOBIN 33.6 pg (27.5-34.5); MEAN CORPUSCULAR HGB CONC 34.7 g/dL (33.2-36.2); MEAN PLATELET VOLUME 8.6 fL (7.4-10.4); MONOCYTES % (AUTO) 6 % (2-9); NEUTROPHILS % (AUTO) 54 % (42-75); PLATELET COUNT 254 x10^3/uL (130-400); RED BLOOD COUNT 3.98 x10^6/uL (4.38-5.82); RED CELL DISTRIBUTION WIDTH 14.2 % (9.4-14.8)
[2021-01-12 05:33] LABS: MD NO
[2021-01-12 05:36] LABS: ANION GAP 6 mmol/L (5-15); CALCIUM 8.7 mg/dL (8.5-10.1); CHLORIDE 109 mmol/L (98-107); CREATININE 1.04 mg/dL (0.7-1.3)
[2021-01-12] MEDS: NYSTATIN TOPICAL POWDER 15GM TP SCH ×4 (05:43→20:13)
[2021-01-12] MEDS: ENOXAPARIN 100 MG/ML SQ SCH (08:36)
[2021-01-12] MEDS: ENOXAPARIN 120MG/0.8ML SQ SCH (08:36)
[2021-01-12] MEDS: FUROSEMIDE 40 MG TABLET PO SCH ×2 (08:36→20:12)
[2021-01-12 09:45] VITALS: BP 110/67
[2021-01-12] MEDS ORDERED: APIXABAN 5 MG TABLET ONE (10:57)
[2021-01-12] MEDS: APIXABAN 5 MG TABLET PO SCH ×2 (11:02→20:12)
[2021-01-12] MEDS: AMIODARONE 450 MG in DEXTROSE 5% 241 ML IV PRN ×2 (12:26→22:46)
[2021-01-12 13:38] VITALS: BP 115/75
[2021-01-12 20:04] VITALS: BP 138/77
[2021-01-12] MEDS: FILTER 0.22 MICRON IV PRN (22:46)
[2021-01-13 00:05] VITALS: BP 131/81
[2021-01-13] MEDS: NYSTATIN TOPICAL POWDER 15GM TP SCH ×4 (05:24→21:39)
[2021-01-13] MEDS: AMIODARONE 450 MG in DEXTROSE 5% 241 ML IV PRN ×3 (05:25→22:06)
[2021-01-13 08:55] VITALS: BP 102/69
[2021-01-13] MEDS ORDERED: PROPOFOL 10 MG/ML, 20ML ONE (09:19)
[2021-01-13] MEDS: AMIODARONE 200 MG TABLET PO SCH ×2 (10:19→21:39)
[2021-01-13] MEDS: APIXABAN 5 MG TABLET PO SCH ×2 (10:19→21:39)
[2021-01-13] MEDS: FUROSEMIDE 40 MG TABLET PO SCH ×2 (10:19→21:39)
[2021-01-13 14:30] VITALS: BP 115/76
[2021-01-13] MEDS: FILTER 0.22 MICRON IV PRN (15:07)
[2021-01-13 19:47] VITALS: BP 133/80
[2021-01-14 01:15] VITALS: BP 146/85
[2021-01-14] MEDS: AMIODARONE 450 MG in DEXTROSE 5% 241 ML IV PRN (05:15)
[2021-01-14] MEDS: NYSTATIN TOPICAL POWDER 15GM TP SCH ×2 (05:15→11:59)
[2021-01-14] MEDS: AMIODARONE 200 MG TABLET PO SCH (09:34)
[2021-01-14] MEDS: FUROSEMIDE 40 MG TABLET PO SCH (09:34)
[2021-01-14] MEDS: APIXABAN 5 MG TABLET PO SCH (09:34)
[2021-01-14 09:39] VITALS: BP 114/67
[2021-01-14] MEDS ORDERED: AMIO200T42 PO (11:41)
[2021-01-14] MEDS ORDERED: APIX5TAB PO (11:41)
== END 2021-01-14 13:11 | disposition home or self-care (01) | DRG 309 ==
LOC: ED 18:53 → EDIP 19:00 → 5SO 20:59
PROVIDERS: ADMIT Internal Medicine; ATTEND Internal Medicine
PROC: B24BZZ4 Ultrasonography of Heart with Aorta, Transesophageal (ICD-10-PCS; 2021-01-13)
PROC: 5A2204Z Restoration of Cardiac Rhythm, Single (ICD-10-PCS; principal; 2021-01-13 14:30)
DX: I47.1 Supraventricular tachycardia (principal); E44.0 Moderate protein-calorie malnutrition; Z68.45 Body mass index [BMI] 70 or greater, adult; I48.91 Unspecified atrial fibrillation; Z20.822 Contact with and (suspected) exposure to COVID-19; E66.01 Morbid (severe) obesity due to excess calories; E87.6 Hypokalemia; G47.33 Obstructive sleep apnea (adult) (pediatric); I07.1 Rheumatic tricuspid insufficiency; Z80.1 Family history of malignant neoplasm of trachea, bronchus and lung; Z87.891 Personal history of nicotine dependence; Z79.899 Other long term (current) drug therapy
CPT/HCPCS: 36415; 96374; 96375; 99285; C8929; 71045; 80048; 80053; 83735; 84100; 84443; 84484; 85025; 87635; 92960; 93005; 93312; 93321; 93325; 94660; G0378; J0153; J1650; J2704; J7060; Q9957; J0282; J1160